=== PATIENT | female | born 1990 | race Caucasian/White ===

== ENCOUNTER 2016-10-01 21:03 | Outpatient (CLI) | payer BC ==
[~2016-10-01 21:03] MED LIST: Motrin PO; NATALCARE RX1 TABLET PO; Percocet 5/325,Endoc PO
[2016-10-01 21:33] VITALS: BP 117/72
[2016-10-01 22:09] LABS: ADD MIUA? YES; BILIRUBIN NEGATIVE; BLOOD NEGATIVE; COLOR YELLOW ((YELLOW)); GLUCOSE (STRIP) NEGATIVE; KETONES NEGATIVE; LEUKOCYTES MODERATE; NITRITE NEGATIVE; PROTEIN (STRIP) NEGATIVE; SPECIFIC GRAVITY 1.017 (1.000-1.030); UROBILINOGEN 0.2 MG/DL (0.2-1.0)
[2016-10-01 22:17] LABS: BACTERIA RARE /HPF; EPITHELIAL CELLS 1+ /HPF; MUCUS TRACE /LPF; RED BLOOD CELLS 0-5 /HPF (0-5); UCUL ADDED? NO; WHITE BLOOD CELLS 15-20 /HPF (0-5)
== END 2016-10-02 01:40 | disposition home or self-care (01) ==
LOC: LDRP-OP 21:03 → 2WEST 21:04
PROVIDERS: Nurse Practitioner
DX: O47.02 False labor before 37 completed weeks of gestation, second trimester (principal); Z3A.21 21 weeks gestation of pregnancy
CPT/HCPCS: 59025; 76815; 81003; 87086; G0378

== ENCOUNTER 2017-01-23 15:49 | Outpatient (CLI) | payer BC ==
[2017-01-23 16:10] VITALS: BP 128/77
== END 2017-01-23 17:10 | disposition home or self-care (01) ==
LOC: LDRP-OP 15:49 → 2WEST 15:50 → LDRP-OP 03-07 01:56
DX: O36.8130 Decreased fetal movements, third trimester, not applicable or unspecified (principal); Z3A.38 38 weeks gestation of pregnancy
CPT/HCPCS: 59025; G0378

== ENCOUNTER 2017-02-05 21:22 | Inpatient (IN) | payer BC ==
[~2017-02-05] VITALS: Ht 172.7 cm; Wt 117.0 kg
[2017-02-05] MEDS ORDERED: ZANTAC150 MG PO (22:27)
[2017-02-05] MEDS ORDERED: OMEPRAZOLE10 M1 PO (22:28)
[2017-02-05] MEDS ORDERED: BENTYL10 MG PO (22:28)
[2017-02-05 22:56] VITALS: BP 102/67
[2017-02-05 23:17] LABS: EOSINOPHIL (%) 0.6 % (0-5); EOSINOPHIL COUNT 0.1 K/uL (0-0.3); HEMATOCRIT 36.1 % (36.0-46.0); IMMATURE GRANULOCYTE (%) 0.3 % (0.0-0.7); INSTRUMENT ABS NEUTROPHIL CT 6.5 K/uL; MCH 30.9 PG (29.0-34.0); MCV 93.8 FL (83-99); MEAN PLAT.VOLUME 9.9 uM^3 (9.5-12.4); MONOCYTE (%) 10.3 % (3-12); NEUTROPHIL (%) 67.8 % (45-76); NEUTROPHIL COUNT 6.5 K/uL (1.8-6.4); PLATELET COUNT 189 K/uL (156-360); RBC DIS.WIDTH-CV 14.9 % (11.8-14.6); RBC DIS.WIDTH-SD 51.4 % (39-53); RED BLOOD COUNT 3.85 M/uL (3.80-5.20); WHITE BLOOD COUNT 9.6 K/uL (4.1-10.2)
[2017-02-06] VITALS (14 sets, daily range): BP systolic 92–140; BP diastolic 53–77
[2017-02-06] MEDS ORDERED: IBUPROFEN800 MG PO (03:50)
[2017-02-07 07:15] VITALS: BP 108/65
[2017-02-07 16:31] VITALS: BP 112/69
== END 2017-02-07 18:30 | disposition home or self-care (01) | DRG 641 ==
LOC: LDRP-OP 21:22 → 2WEST 21:24 → LDRP-OP 02-06 11:42 → 2WEST 02-07 18:30 → LDRP-OP 03-07 17:40
PROVIDERS: Nurse Practitioner
PROC: 00HU33Z Insertion of Infusion Device into Spinal Canal, Percutaneous Approach (ICD-10-PCS; principal; 2017-02-06)
PROC: 10E0XZZ Delivery of Products of Conception, External Approach (ICD-10-PCS; principal; 2017-02-06)
PROC: 3E0R3CZ (ICD-10-PCS; principal; 2017-02-06)
DX: E66.01 Morbid (severe) obesity due to excess calories (principal); O76 Abnormality in fetal heart rate and rhythm complicating labor and delivery; O99.62 Diseases of the digestive system complicating childbirth; O77.0 Labor and delivery complicated by meconium in amniotic fluid; O99.344 Other mental disorders complicating childbirth; F32.9 Major depressive disorder, single episode, unspecified; F41.9 Anxiety disorder, unspecified; K21.9 Gastro-esophageal reflux disease without esophagitis; K58.9 Irritable bowel syndrome, unspecified; Z3A.40 40 weeks gestation of pregnancy; Z37.0 Single live birth
CPT/HCPCS: 85025; C1755; G0378; J2405; J3010; J7120; S0020